=== PATIENT | male | born 1980 | race Asian ===

== ENCOUNTER 2019-03-01 05:59 | Emergency (ER) | payer MEDICAID ==
[~2019-03-01] VITALS: Ht 170.2 cm; Wt 74.4 kg
[2019-03-01 06:04] VITALS: Ht 170.2 cm; Wt 74.4 kg
[2019-03-01 07:16] VITALS: BP 128/76
== END 2019-03-01 07:16 | disposition home or self-care (01) ==
LOC: ED 05:59
DX: S51.811A Laceration without foreign body of right forearm, initial encounter (principal); W45.8XXA Other foreign body or object entering through skin, initial encounter; Y93.89 Activity, other specified; Y92.89 Other specified places as the place of occurrence of the external cause; Y99.8 Other external cause status
CPT/HCPCS: 90714

== ENCOUNTER 2019-03-03 08:31 | Emergency (ER) | payer MEDICAID ==
[~2019-03-03] VITALS: Ht 170.2 cm; Wt 75.3 kg
[2019-03-03 08:42] VITALS: Ht 170.2 cm; Wt 75.3 kg
[2019-03-03 10:57] VITALS: BP 129/78
== END 2019-03-03 10:57 | disposition home or self-care (01) ==
LOC: ED 08:31
DX: S51.811D Laceration without foreign body of right forearm, subsequent encounter (principal); X58.XXXD Exposure to other specified factors, subsequent encounter

== ENCOUNTER 2019-03-11 07:42 | Emergency (ER) | payer MEDICAID ==
[~2019-03-11] VITALS: Ht 170.2 cm; Wt 75.7 kg
[2019-03-11 07:48] VITALS: BP 133/74; Ht 170.2 cm; Wt 75.7 kg
== END 2019-03-11 08:10 | disposition home or self-care (01) ==
LOC: ED 07:42
DX: S51.811D Laceration without foreign body of right forearm, subsequent encounter (principal); F17.210 Nicotine dependence, cigarettes, uncomplicated; X58.XXXD Exposure to other specified factors, subsequent encounter
CPT/HCPCS: 99406